=== PATIENT | female | born 1990 | race Caucasian/White ===

== ENCOUNTER 2016-07-04 20:54 | Emergency (ER) | payer SELFPAY ==
[2016-07-04 21:54] VITALS: BP 142/80
[2016-07-04] MEDS ORDERED: Bacitracin Oint 1 GM U/D Packet TOP ONE (22:30)
--- NOTE | 2016-07-04 22:33 | EDM.PDOC ---
ED HPI GENERAL MEDICAL PROBLEM - General Chief Complaint: Bite:Animal, Insect Stated Complaint: DOG BITE/LT SIDE Time Seen by Provider: 07/04/16 22:18 Source of Information: Reports: Patient, RN Notes Reviewed History Limitations: Reports: No Limitations - History of Present Illness INITIAL COMMENTS - FREE TEXT/NARRATIVE: Here with her Chief complaint: Dog bite left buttock HPI: 26-year-old female was jogging about 5 PM when a large determined separate typed dog came from the side of the road. There is someone there who appear to be in order so she wasn't concerned. However the dog attacked her and bit her in the left buttock. The carpet layer helper reported to her that the immunizations of the dog are up-to-date She ran home cleaned the wound is open moderate, contacted the police and reported to bite. Tetanus status is up-to-date with her last injection in 2015 She has a small scrape of her right elbow from her fall when she was bit Able to ambulate without difficulty No head injury Left Pain Score (Numeric/FACES): 3 - Related Data Allergies Allergy/AdvReac Type Severity Reaction Status Date / Time No Known Allergies Allergy Verified 07/04/16 22:01 Home Meds: Home Meds NK [No Known Home Meds] 07/04/16 [History] Past Medical History - Infectious Disease History Infectious Disease History: Reports: Chicken Pox - Past Surgical History Head Surgeries/Procedures: Reports: None Dermatological Surgical History: Reports: None Social & Family History - Tobacco Use Smoking Status *Q: Never Smoker Second Hand Smoke Exposure: No - Caffeine Use Caffeine Use: Reports: Coffee, Tea - Alcohol Use Days Per Week of Alcohol Use: 3 Number of Drinks Per Day: 3 Total Drinks Per Week: 9 Date of Last Drink: 07/03/16 Time of Last Drink: 18:00 - Recreational Drug Use Recreational Drug Use: No ED ROS GENERAL - Review of Systems Review Of Systems: See Below Constitutional: Reports: No Symptoms HEENT: Reports: No Symptoms Respiratory: Reports: No Symptoms GI/Abdominal: Reports: No Symptoms Skin: Reports: Wound (Abrasion to right elbow dorsal aspect), Other (Dog bite wounds to the medial aspect of the left buttock,) Neurological: Reports: No Symptoms ED EXAM, ANIMAL BITE - Physical Exam Exam: See Below Exam Limited By: No Limitations General Appearance: Alert, Mild Distress, Other (Stable vital signs, injury confined to left buttock and right elbow) Head: Atraumatic, Normocephalic Respiratory/Chest: No Respiratory Distress, No Accessory Muscle Use Cardiovascular: Normal Peripheral Pulses, Regular Rate, Rhythm Extremities: Other (Small abrasion dorsum right elbow, no laceration; on the lower medial left buttock area there is a 12 right from a dog with several non- gaping lacerations and some bruising, mild swelling) Neurological: Alert, Oriented, No Motor/Sensory Deficits Psychiatric: Normal Affect, Normal Mood Skin Exam: Normal Color, Warm/Dry Lymphadenopathy: Bilateral: No Adenopathy Lymphatic: No Adenopathy Course - Vital Signs Last Recorded V/S: Last Vital Signs Temp 36.8 C 07/04/16 21:59 Pulse 68 07/04/16 21:59 Resp 16 07/04/16 21:59 BP 142/80 H 07/04/16 21:59 Pulse Ox 99 07/04/16 21:59 - Orders/Labs/Meds Meds: Medications Discontinued Medications Generic Name Dose Route Start Last Admin Trade Name Ray PRN Reason Stop Dose Admin Bacitracin 1 dose 07/04/16 22:30 Bacitracin Oint 1 Gm TOP 07/04/16 22:31 ONETIME ONE - Re-Assessments/Exams Free Text/Narrative Re-Assessment/Exam: 07/04/16 22:36 26-year-old female with dog bite wound to left buttock and scrape to right elbow Recommended topical antibiotics, there is no tissue maceration so risk of infection is lower Dressing applied See discharge instructions Departure - Departure Time of Disposition: 22:30 Disposition: Home, Self-Care 01 Condition: good Clinical Impression: Animal bite of buttock Qualifiers: Encounter type: initial encounter Laterality: left Qualified Code(s): S31.825A - Open bite of left buttock, initial encounter - Discharge Information Instructions: Animal Bite Referrals: PCP,None [Primary Care Provider] - Forms: ED Department Discharge Care Plan Goals: Apply antibiotic ointment once or twice daily to the wound, bacitracin, Triple Antibiotic, or Neosporin ointment can be used Get rechecked if there is increasingly severe pain, cloudy discharge from the wound, increased redness or red streaks from the wound or fever Wash the wound daily with warm water
== END 2016-07-04 23:09 | disposition home or self-care (01) ==
LOC: JP.ED 20:54
DX: S31.825A Open bite of left buttock, initial encounter (principal); S50.311A Abrasion of right elbow, initial encounter; W54.0XXA Bitten by dog, initial encounter
CPT/HCPCS: 99282; 99283